=== PATIENT | female | born 1995 | race African-American/Black ===

== ENCOUNTER 2020-05-04 13:01 | Emergency (ER) | payer MEDICAID ==
[~2020-05-04] VITALS: Ht 170.2 cm; Wt 61.0 kg
[2020-05-04] MEDS ORDERED: IBUPROFEN 600MG TABLET PO ONE (13:30)
[2020-05-04 14:30] VITALS: BP 110/48
== END 2020-05-04 14:32 | disposition home or self-care (01) ==
LOC: ER 13:01
DX: S90.02XA Contusion of left ankle, initial encounter (principal); W50.2XXA Accidental twist by another person, initial encounter; Y93.89 Activity, other specified; Y92.89 Other specified places as the place of occurrence of the external cause; Y99.8 Other external cause status
CPT/HCPCS: 73610; 81025; 99283